=== PATIENT | female | born 1995 | race Two or more races ===

== ENCOUNTER 2018-10-21 09:29 | Emergency (ER) | payer OTHER ==
[~2018-10-21] VITALS: Ht 165.1 cm; Wt 71.4 kg
[2018-10-21] MEDS ORDERED: IBUPROFEN 600 MG TABLET PO ONE (10:00)
[2018-10-21] MEDS ORDERED: ONDANSETRON HCL 4 MG TABLET PO ONE (10:00)
[2018-10-21 11:15] VITALS: BP 108/70
[2018-10-26] MEDS ORDERED: IBUP-2070 PO (20:38)
[2018-10-26] MEDS ORDERED: ONDA4 PO (20:38)
== END 2018-10-21 11:20 | disposition home or self-care (01) ==
LOC: EMS 09:30
DX: S06.0X9A Concussion with loss of consciousness of unspecified duration, initial encounter (principal); S13.4XXA Sprain of ligaments of cervical spine, initial encounter; W20.8XXA Other cause of strike by thrown, projected or falling object, initial encounter; Y93.89 Activity, other specified; Y92.89 Other specified places as the place of occurrence of the external cause; Y99.0 Civilian activity done for income or pay
CPT/HCPCS: 70450; 72125; 99284; Q0162